=== PATIENT | male | born 2000 | race Hispanic/Latino ===

== ENCOUNTER 2023-11-06 10:14 | Day surgery (SDC) | payer OTHER ==
[2023-10-30 13:03] VITALS: BMI 27.4
[2023-11-06] MEDS ORDERED: Ketorolac Tromethamine 30 MG (1 mL) VIAL ONE (11:16)
[2023-11-06] MEDS ORDERED: Bupivacaine PF 0.5% 30 ML VIAL ONE (11:40)
[2023-11-06] MEDS ORDERED: EPINEPHrine 1 MG/ML VIAL ONE (11:40)
[2023-11-06] MEDS ORDERED: CEFAZOLIN 2 GM VIAL ONE (11:41)
[2023-11-06] MEDS ORDERED: PROPOFOL 0 ML ONE (12:07)
[2023-11-06] MEDS ORDERED: fentaNYL 50 mcg/mL 1 mL Vial ONE (12:07)
[2023-11-06] MEDS ORDERED: Ondansetron PF 4 MG/2 ML Vial ONE (12:08)
[2023-11-06] MEDS ORDERED: Dexamethasone 4 mg/ml Vial ONE (12:08)
[2023-11-06] MEDS ORDERED: Lidocaine 1% PF 5 ML VIAL ONE (12:08)
[2023-11-06] MEDS ORDERED: PROPOFOL 20 ML ONE ×2 (12:08→13:29)
[2023-11-06] MEDS ORDERED: Dexmedetomidine 200 MCG/2 ML VIAL ONE (12:13)
[2023-11-06] MEDS ORDERED: HYDROmorphone 0.5 MG/0.5 ML SYRINGE ONE (12:13)
[2023-11-06] MEDS ORDERED: PHENYLEPHRINE-NS 100 MCG/ML 10 ML SYRINGE ONE (13:35)
== END 2023-11-06 15:50 | disposition home or self-care (01) ==
LOC: CSHSDC 10:14
PROVIDERS: ATTEND Orthopaedic Surgery
PROC: 0SBD4ZZ Excision of Left Knee Joint, Percutaneous Endoscopic Approach (ICD-10-PCS; principal; 2023-11-06)
DX: S83.242A Other tear of medial meniscus, current injury, left knee, initial encounter (principal); F17.210 Nicotine dependence, cigarettes, uncomplicated; Z79.899 Other long term (current) drug therapy; X58.XXXA Exposure to other specified factors, initial encounter
CPT/HCPCS: J0171; J1100; J1170; J1885; J2405; J2704; J3010; S0020